=== PATIENT | female | born 1995 | race Caucasian/White ===

== ENCOUNTER 2023-11-08 09:15 | Outpatient (CLI) | payer OTHER ==
--- NOTE | 2023-11-08 17:50 | XRAY Report ---
PROCEDURE: Chest 2V INDICATIONS: ACUTE COUGH TECHNIQUE: 2 views of the chest were acquired. COMPARISON: None. FINDINGS: Surgical changes and devices: None. Lungs and pleura: Mild peribronchial thickening, extending to the lower lobes on lateral view. No de nse airspace disease. No drainable effusions. Mediastinum: Normal heart size Bones and chest wall: Unremarkable IMPRESSION: Mild peribronchial wall thickening, extending to the lower lobes, likely bronchitis/atypical infectio n. Consider future imaging surveillance to assess for resolution. Reviewed by: Jordan Best MD on 11/08/2023 5:48 PM PDT Approved by: Jordan Best MD on 11/08/2023 5:48 PM PDT Station ID: [id number]
== END 2023-11-08 09:30 | disposition home or self-care (01) ==
LOC: DI.N 09:15
PROVIDERS: ATTEND Physician Assistant Medical
DX: R91.8 Other nonspecific abnormal finding of lung field (principal)

== ENCOUNTER 2023-11-14 14:14 | Outpatient (CLI) | payer OTHER ==
--- NOTE | 2023-11-14 16:53 | XRAY Report ---
PROCEDURE: Chest 2V INDICATIONS: ACUTE COUGH TECHNIQUE: 2 views of the chest were acquired. COMPARISON: 11/08/2023 FINDINGS: Surgical changes and devices: None. Lungs and pleura: No pleural effusions or pneumothorax. Lungs are clear. Mediastinum: Mediastinal contours appear normal. Heart size is normal. Bones and chest wall: No suspicious bony lesions. Overlying soft tissues appear unremarkable. IMPRESSION: No acute cardiopulmonary process. Decreased peribronchial cuffing. Reviewed by: Yakov Norton MD on 11/14/2023 4:52 PM PDT Approved by: Yakov Norton MD on 11/14/2023 4:52 PM PDT Station ID: [id number]
== END 2023-11-14 14:15 | disposition home or self-care (01) ==
LOC: DI.N 14:14
PROVIDERS: ATTEND Physician Assistant Medical
DX: R05.1 Acute cough (principal)

== ENCOUNTER 2023-11-16 13:52 | Emergency (ER) | payer OTHER ==
[2023-11-16 14:11] VITALS: BP 115/68; O2SAT 100
--- NOTE | 2023-11-16 15:38 | ED Physician Documentation ---
History of Present Illness - Stated complaint Stated Complaint: NAUSEA,DIZZINESS,HARD TIME FOCUSING - Chief complaint Chief Complaint: Heent - History obtained from History obtained from: Patient - Additonal information Additional information: She is previously healthy. At the beginning of the spring she started to have allergies with congestion. She was on Claritin and everything got worse about a week and a half ago with more cough. She was seen in the office and prescribed both Zithromax and doxycycline simultaneously (I am not sure why the combo). She was also prescribed steroids and benzonatate. She had side effects with the antibiotics and stopped them but is improving from a cough perspective. Today she is only on the benzonatate and complains of fuzziness, blurry vision, mild c onfusion and feeling out of it. PD PAST MEDICAL HISTORY - Past Medical History Past Medical History: No Cardiovascular: None Respiratory: None Neuro: None Endocrine/Autoimmune: None GI: None RESEARCH MANAGEMENT ASSOCIATE: None : None HEENT: None Psych: None Musculoskeletal: None Derm: None - Past Surgical History Past Surgical History: No - Present Medications Home Medications: Ambulatory Orders Medication Instructions Recorded Confirmed Benzonatate [Tessalon] 100 mg PO DAILY 11/16/23 Cetirizine HCl [Zyrtec] 10 mg PO DAILY 11/16/23 - Allergies Allergies/Adverse Reactions: Allergies Allergy/AdvReac Type Severity Reaction Status Date / Time azithromycin [From Zithromax] AdvReac Headache Verified 11/16/23 14:07 - Social History Does the pt smoke?: No Smoking Status: Never smoker Does the pt drink ETOH?: No Does the pt have substance abuse?: No - Immunizations Immunizations are current?: Yes PD ED PE NORMAL - Vitals Vital signs reviewed: Yes - General General: Alert and oriented X 3, No acute distress - HEENT HEENT: PERRL, EOMI, Ears normal - Neck Neck: Supple, no meningeal sign, No bony TTP - Cardiac Cardiac: RRR, No murmur - Respiratory Respiratory: Other (mild exp wheezes) - Abdomen Abdomen: Non tender - Derm Derm: Normal color, Warm and dry - Neuro Neuro: Alert and oriented X 3, border machine operator 2-12 intact, No motor deficit, No sensory deficit, Normal speech Eye Opening: Spontaneous Motor: Obeys Commands Verbal: Oriented GCS Score: 15 Results - Vitals Vitals: Vital Signs - 24 hr 11/16/23 11/16/23 11/16/23 14:00 14:05 15:22 Temperature 36.5 C Heart Rate 78 Respiratory 16 16 16 Rate Blood Pressure 115/68 O2 Saturation 100 Oxygen O2 Source Room air PD Medical Decision Making - ED course ED course: She presents with nonspecific symptoms of confusion, dizziness and blurred vision with normal exam. This may all be due to the benzonatate. Cessation was advised with close follow-up and return if symptoms did not improve or if they worsen of course. Departure - Departure Disposition: 01 Home, Self Care Clinical Impression: Dizziness, Blurry vision, Medication side effect Condition: Good Instructions: ED Dizziness [facility] Comments: As discussed, I believe it most likely that your current symptoms are due to the benzonatate. Recommend stopping this and monitoring your symptoms, return if worse. Followup with your PCP, next available appt. Forms: PCP List Discharge Date/Time: 11/16/23 15:23
== END 2023-11-16 15:23 | disposition home or self-care (01) ==
LOC: ED 13:52
DX: H53.8 Other visual disturbances (principal); R41.0 Disorientation, unspecified; R41.89 Other symptoms and signs involving cognitive functions and awareness; T48.3X5A Adverse effect of antitussives, initial encounter
CPT/HCPCS: 99281; 99283